=== PATIENT | female | born 1950 | race Caucasian/White ===

== ENCOUNTER 2021-08-21 08:00 | Outpatient (CLI) | payer MEDICARE, OTHER | END 2021-08-21 23:59 | LOC: LAB.N 08:00 | PROVIDERS: ATTEND Family Medicine | DX: R05.9 Cough, unspecified (principal); Z20.822 Contact with and (suspected) exposure to COVID-19 | CPT/HCPCS: 87275; 87276 ==

== ENCOUNTER 2021-08-21 08:00 | Outpatient (CLI) | payer MEDICARE, OTHER ==
--- NOTE | 2021-08-21 17:18 | XRAY Report ---
PROCEDURE: Chest 2 View X-Ray INDICATIONS: Cough TECHNIQUE: 2 view(s) of the chest. COMPARISON: None. FINDINGS: Surgical changes and devices: None. Lungs and pleura: No pleural effusions or pneumothorax. Lungs are clear. Mediastinum: Mediastinal contours are normal. Heart size is normal. Bones and chest wall: No suspicious bony abnormalities. Soft tissues appear unremarkable. IMPRESSION: No acute cardiopulmonary process demonstrated radiographically. Reviewed by: Avel Hernandez MD on 08/21/2021 4:17 PM [facility] Approved by: Avel Hernandez MD on 08/21/2021 4:17 PM [facility] Station ID: [id number]
== END 2021-08-21 23:59 ==
LOC: DI.N 08:00
PROVIDERS: ATTEND Family Medicine
DX: R05.9 Cough, unspecified (principal); Z20.822 Contact with and (suspected) exposure to COVID-19
CPT/HCPCS: 71046; 87275; 87276; U0004

== ENCOUNTER 2021-11-22 13:47 | Emergency (ER) | payer MEDICARE, OTHER ==
--- NOTE | 2021-11-22 15:42 | XRAY Report ---
PROCEDURE: Shoulder 3 View RT INDICATIONS: shoulder injury TECHNIQUE: 3 views of the shoulder were acquired. COMPARISON: None. FINDINGS: Bones: No fractures or dislocations. No suspicious bony lesions. Visualized ribs appear intact. Soft tissues: Calcification noted adjacent to the lateral margin of the right humeral head. IMPRESSION: No fracture. No osseous lesion. If there are persistent symptoms or continued clinical concern for pa thology, then repeat plain film radiographs (7-10 days) or advanced imaging (CT, MR, bone scan) shoul d be considered for further evaluation. Right rotator cuff calcific tendinitis. Reviewed by: Zandra Alejo MD, PhD on 11/22/2021 3:41 PM PDT Approved by: Zandra Alejo MD, PhD on 11/22/2021 3:41 PM PDT Station ID: [id number]
--- NOTE | 2021-11-22 17:12 | ED Physician Documentation ---
History of Present Illness - Stated complaint Stated Complaint: GLF RT SHOULDER PX - Chief complaint Chief Complaint: Trauma Ext - History obtained from History obtained from: Patient - Additonal information Additional information: Pt comes to the ED with CC of R lateral shoulder injury last night after tripping over a woodpile. Pt states she fell directly on that side. No other injuries. Pt did not hit her head or lose consciousness. She states she has been using the shoulder, but it hurts. She states she is only here because her made her come. No numbness or tingling. Review of Systems Ten Systems: 10 systems reviewed and negative Constitutional: reports: Reviewed and negative Eyes: reports: Reviewed and negative Ears: reports: Reviewed and negative Nose: reports: Reviewed and negative Throat: reports: Reviewed and negative Cardiac: reports: Reviewed and negative Respiratory: reports: Reviewed and negative GI: reports: Reviewed and negative : reports: Reviewed and negative Skin: reports: Reviewed and negative Musculoskeletal: reports: Joint pain. denies: Extremity swelling Neurologic: reports: Reviewed and negative Psychiatric: reports: Reviewed and negative Endocrine: reports: Reviewed and negative Immunocompromised: reports: Reviewed and negative PD PAST MEDICAL HISTORY - Present Medications Home Medications: Ambulatory Orders Medication Instructions Recorded Confirmed Fluoxetine HCl [Prozac] 40 mg PO DAILY 11/22/21 11/22/21 Levothyroxine Sodium 137 mcg PO DAILY 11/22/21 11/22/21 [Levothyroxine] Lisinopril [Zestril] 10 mg PO DAILY 11/22/21 11/22/21 Simvastatin [Zocor] 20 mg PO HS 11/22/21 11/22/21 - Allergies Allergies/Adverse Reactions: Allergies Allergy/AdvReac Type Severity Reaction Status Date / Time codeine Allergy Rash Verified 11/22/21 13:53 PD ED PE NORMAL - Vitals Vital signs reviewed: Yes - General General: Alert and oriented X 3, No acute distress, Well developed/nourished - HEENT HEENT: Atraumatic, PERRL, EOMI, Moist mucous membranes - Neck Neck: Supple, no meningeal sign, No bony TTP - Cardiac Cardiac: Strong equal pulses - Respiratory Respiratory: No respiratory distress - Abdomen Abdomen: Soft, Non tender, Non distended - Derm Derm: Normal color, Warm and dry, No rash, Other (No shoulder contusion or abrasion) - Extremities Extremities: No deformity, No edema, Other (Limited ROM R shoulder, secondary to pain. No deformity. Point tenderness over glenoid rim laterally. ) - Neuro Neuro: Alert and oriented X 3, transfer worker 2-12 intact, No motor deficit, No sensory deficit, Normal speech - Psych Psych: Normal mood, Normal affect Results - Vitals Vitals: Oxygen O2 Source Room air - Rads (name of study) R shoulder XR neg Radiology: Final report received, EMP read indepedently, See rad report (neg) PD MEDICAL DECISION MAKING - ED course Complexity details: reviewed results, re-evaluated patient, considered differential, d/w patient ED course: Pt was given a sling for comfort, though we did discuss the importance of ROM to keep shoulder from stiffening up. Pt is advised regarding the need for F/U if she does not notice any significant improvement over the next couple of weeks. Departure - Departure Disposition: 01 Home, Self Care Clinical Impression: Contusion of shoulder, right Qualifiers: Encounter type: initial encounter Qualified Code(s): S40.011A - Contusion of right shoulder, initial encounter Condition: Stable Instructions: ED Contusion Upper Ext Comments: Your x-ray looks good, and your shoulder is most likely bruised. You may take ibuprofen and Tylenol as needed for this and use ice and heat to help with inflammation. Please do the range of motion exercises we have talked about. If you do not notice significant improvement over the next couple of weeks, you should follow-up with your primary doctor to discuss having MRI done. Discharge Date/Time: 11/22/21 17:36
[2021-11-22 17:35] VITALS: BP 144/81
== END 2021-11-22 17:36 | disposition home or self-care (01) ==
LOC: ED 13:47
DX: S40.011A Contusion of right shoulder, initial encounter (principal); W01.0XXA Fall on same level from slipping, tripping and stumbling without subsequent striking against object, initial encounter
CPT/HCPCS: 99282; 99283